=== PATIENT | male | born 1945 | race Caucasian/White ===

== ENCOUNTER 2017-06-07 21:20 | Inpatient (IN) | payer MEDICARE, OTHER ==
[~2017-06-07] VITALS: Ht 177.8 cm; Wt 86.2 kg
[2017-06-07] VITALS (7 sets, daily range): BP systolic 130–168; BP diastolic 80–118; Ht 177.8 cm; Wt 86.2 kg
--- NOTE | ~2017-06-07 | HP ---
PATIENT: SHAYY KAMARA MEDICAL RECORD: [id number] ACCOUNT: [id number] LOCATION:[facility] D.2309 : 47 ADMISSION DATE: 06/07/17 HISTORY AND PHYSICAL EXAMINATION HISTORY OF PRESENT ILLNESS: Mr. Kamara is a very nice 71-year-old white male that is admitted for a lower GI bleed. States he woke up yesterday morning and started having diarrhea, had 3 or 4 episodes which he initially saw no blood; around noon, it turned to bright red blood. He went to [facility] to get checked out and was transferred here because of no GI coverage. He arrived here overnight around 10:30 or 11 and was seen by GI fraud prevention analyst upon arrival. He is totally stable at this time, has been stable, but is admitted to the ICU for closer monitoring. He is in atrial fib for which he has no history of, but it is in a controlled rate and he is not symptomatic with it. His initial H&H is 15.1 and 43.1. He has normal platelet count 160,000 and white count is normal. BUN is 10. Potassium a little low at 3.3. PAST MEDICAL HISTORY: Relatively unremarkable. 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 He has a history of hypertension and hyperlipidemia and some GERD. PAST SURGICAL HISTORY: Include wisdom teeth, multiple inguinal and femoral hernia surgeries and some bilateral knee surgeries. ALLERGIES: PENICILLIN. HOME MEDICATIONS: Include Xarelto 20 mg daily, losartan 50 mg a day, pravastatin 80 mg a day, amlodipine 5 mg a day, and omeprazole 20 mg a day. FAMILY HISTORY: Noncontributory. SOCIAL HISTORY: He does not smoke or drink. He is retired from the [employer]. REVIEW OF SYSTEMS: He denies any recent fever, chills, sweats, unexplained weight loss, swollen glands or other constitutional symptoms. He denies any chest pain or shortness of breath. He does have abdominal pain and diarrhea as described above. No nausea or vomiting. No recent change in urination. PHYSICAL EXAMINATION: GENERAL: He is in no distress. Pleasant, cooperative and conversive. HEENT: Sclerae nonicteric. NECK: Soft and supple. HEART: Irregularly irregular with normal rate. LUNGS: Clear. ABDOMEN: Soft. No masses. There is a little bit of tenderness on the left side. EXTREMITIES: Lower extremities reveal no edema. NEUROLOGIC: Without any gross focal deficits. IMPRESSION: 1. Lower gastrointestinal bleed. CT shows wall changes in the descending colon, infectious versus embolic versus other. 2. Long-term anticoagulation secondary to recurrent deep venous thrombosis. 3. Hypertension. HISTORY AND PHYSICAL [id number] WHEAT,BJ 4. Hyperlipidemia. 5. New onset atrial fibrillation. 6. Gastroesophageal reflux disease. PLAN: Admit to the ICU for monitoring, serial H&Hs. Correct potassium. GI consult with Dr. Baltazar, who saw the patient upon arrival. Get an echo. Cardiology consult. Check mag and TSH. IV antibiotics. See orders for plan. TRANSINT:[id number] Voice Confirmation ID: [id number] DOCUMENT ID: [id number] GRANT SCRUGGS DO CC: [id number] DICTATION DATE: 06/08/17913 BELT TENDER: 06/08/1756 ADM IN [facility] [address] [id number]
--- NOTE | ~2017-06-07 | CN ---
PATIENT NAME:SHAYY ROGERS MEDICAL RECORD: [id number] : 49 LOCATION:[id number] ADMIT DATE: 06/07/17 ACCOUNT: [id number] CONSULTING PHYSICIAN: DAVID TINAJERO MD REFERRING PHYSICIAN: ESTEBAN OLMEDO M.D. DATE OF CONSULTATION: 06/07/2017 HISTORY OF PRESENT ILLNESS: A 71-year-old gentleman with a history of hypertension, unspecified arrhythmias. describes fairly classic SVT, possible atrial fibrillation and atrial flutter, transferred from [facility] with lower GI bleed and found to be in atrial fibrillation here. Rate is well controlled on no medication. He is entirely asymptomatic. We are asked to see him concerning his cardiovascular status. PAST MEDICAL HISTORY: Includes: 1. History of a DVT in the past, both with instigating factors postop. 2. History of hypertension. 3. Dyslipidemia. 4. Gastroesophageal reflux disease. ALLERGIES: PENICILLIN. MEDICATIONS: Xarelto 20 every day, losartan 50 every day, pravastatin 80 every day, amlodipine 5 Every day, and omeprazole 20 every day. SOCIAL HISTORY: , retired from the railroad. He is nonsmoker, nondrinker. He takes care of ADLs. REVIEW OF SYSTEMS: The patient reports easy bruising but reports no swollen glands. The patient reports no fever, no night sweats, no significant weight gain, no significant weight loss. No significant exercise tolerance. The patient reports no dry eyes, no irritation, no vision change. Patient reports no difficulty hearing and no ear pain. Patient reports no frequent nose bleeds or nose and sinus problems. Patient reports on arm pain on exertion. No shortness of breath while lying down. No history of heart murmur. Patient reports no cough, no wheezing or coughing up blood. Patient reports no abdominal pain, no vomiting. Normal appetite. No diarrhea and not vomiting blood. No nausea and no constipation. Patient reports no incontinence. No difficulty urinating. No hematuria. No increased frequency. Patient reports no muscle aches. No weakness, no arthralgias, no back pain. No swelling of the extremities. Patient reports no abnormal mole, no jaundice, no rashes. Reports no loss of consciousness. No weakness and no numbness. No seizures, dizziness, or headaches. The patient reports no depression, no sleep disturbance, feeling safe in a relationship and no alcohol abuse. Patient reports on fatigue. Reports no runny nose or sinus pressure. No itching, no hives, and no frequent sneezing. PHYSICAL EXAMINATION: GENERAL: Pleasant gentleman in no acute distress. VITAL SIGNS: Blood pressure 130/87, pulse 82 and irregular. HEENT: Normocephalic, atraumatic. NECK: No JVD or bruit. HEART: Irregular, rate controlled. A II/ systolic ejection murmur. LUNGS: Good air excursion. ABDOMEN: Soft, nontender. CONSULT REPORT [id number] SHAYY ROGERS EXTREMITIES: Pulses are well preserved, 2+. No edema. NEUROLOGIC: Grossly intact. IMPRESSION: Atrial fibrillation. At this point in time, has a very low FIONA scores, so I agree with holding Xarelto. Agree with echocardiograph study. Further recommendations based on clinical course. TRANSINT:[id number] Voice Confirmation ID: [id number] DOCUMENT ID: [id number] DAVID TINAJERO MD CC: [id number] DICTATION DATE: 06/08/17 1240 TENNIS CAMP INSTRUCTOR: 06/08/171911 ADM IN [facility] [address] [id number]
--- NOTE | ~2017-06-07 | EC ---
PATIENT:SHAYY ROGERS DATE OF SERVICE: 06/07/17 SEX: M MEDICAL RECORD: [id number] DATE OF : [birth year] LOCATION:D.M2 D.210 AGE OF PATIENT: 71 ADMISSION DATE: 06/07/17 REFERRING PHYSICIAN: INTERPRETING PHYSICIAN: CHERELLE ARIAS MD ECHOCARDIOGRAM REPORT ECHO CHARGES 4 ECHO COMPLETE CLINICAL DIAGNOSIS: NEW ONSET A-FIB ECHOCARDIOGRAPHIC MEASUREMENTS (adult normal given) AC root (d.<3.7cm) 3.4 cm LV Septum d (<1.2 cm> 1.2 cm Valve Excursion 2.1 cm LV Septum (systole) 2.0 cm Left Atria (s.<4.0cm> 3.9 cm LVPW d(<1.2cm) 1.2 cm RV (d.<2.3cm) 2.8 cm LVPW (sytole) 1.7 cm LV diastole(<5.6CM) 5.7 cm MV E-F(>70mm/sec) cm LV systole 3.4 cm LVOT Diameter 1.9 cm MV exc.(>10mm) cm Est.ejection fraction (50-75%) % Pericardial Effusion N DOPPLER: LVIT cm/sec A cm/sec E 94.0 cm/sec LA cm/sec RVSP 32.0 mmHg LVOT 102 cm/sec AOP1/2T m/s Asc. Ao 113 cm/sec RVOT 59.0 cm/sec RA cm/sec PA 62.0 cm/sec AV Gradient Peak 5.1 mmHg AV Mean 2.6 mmHg AV Area 3.1 cm MV Gradient Peak 5.0 mmHg MV Mean 1.7 mmHg MV Area cm COMMENTS: Medical Administrator: Quin OCASIOOE Applications Systems Engineer: 3 Dr. Manuel TAPE# PACS DATE OF SERVICE: 06/09/2017 PROCEDURE: Echocardiogram FINDINGS: 1. Left ventricular chamber size is within normal limits. Left ventricular systolic function is normal. Overall ejection fraction estimated at 55%. 2. Left atrium is within normal limits at 3.9 cm. Right atrium and right ventricle chamber sizes are mildly dilated. 3. Valvular structures have normal structure and motion. ECHOCARDIOGRAM REPORT [id number] SHAYY ROGERS 4. Doppler interrogation reveals moderate mitral regurgitation, moderate tricuspid regurgitation, no other valvular insufficiency or stenosis. Pulmonary systolic pressure is estimated at 32 mmHg. 5. No evidence of pericardial effusion or left ventricular thrombus. TRANSINT:[id number] Voice Confirmation ID: [id number] DOCUMENT ID: [id number] CHERELLE ARIAS MD CC: [id number] DICTATION DATE: 06/10/17 105 VENEER LAYER: 06/10/17 1157 DIS IN 06/10/17 [facility] [address] [id number]
--- NOTE | 2017-06-07 22:00 | NUR ---
ARRIVED BY STRETCHER BY EMS. AMBULATED TO ICU BED. PLACED INTO A HOSPITAL GOWN. RT AC 20G PIV INTACT-SALINE LOCKED. PLACED ON CONTINUOUS CARDIAC MONITORING. AFIB/FLUTTER IN THE LOWER 100'S NOTED ON THE MONITOR. B/P ELEVATED. WILL MONITOR B/P EVERY 15 MINUTES. ABDOMEN SLIGHTLY DISTENDED, TENDER. DR. ALEMAN CAME IN TO BEDSIDE FOR EXAM AND CONSULTATION. WARM BLANKET GIVEN. NO SKIN ISSUES NOTED THAT ARE VISABLE. ON ROOM AIR. WILL MONITOR.
[2017-06-07] MEDS ORDERED: PRAVACHOL80 MG PO (22:41)
[2017-06-07] MEDS ORDERED: NORVASC5 MG PO (22:42)
[2017-06-07] MEDS ORDERED: OMEPRAZOLE20 M1 PO (22:42)
[2017-06-07] MEDS ORDERED: COZAAR50 MG PO (22:43)
[2017-06-07] MEDS ORDERED: XARELTO20 MG PO (22:43)
[2017-06-07 23:15] LABS: HEMATOCRIT 43.1 % (42.0-54.0); HEMOGLOBIN 15.1 g/dL (13.5-17.5)
--- NOTE | 2017-06-07 23:20 | NUR ---
IV FLUIDS-NS HUNG AT 100ML/HR FOR REHYDRATION. EXPLAINED PLAN OF CARE FURTHERMORE AFTER DR. ALEMAN LEFT. INFORMED WILL CONSULT A COOPER APPRENTICE ONCE LABS RESULTED. WILL MONITOR.
[2017-06-07 23:34] LABS: CKMB 0.3 U/L (0.0-3.6); CREATINE KINASE 51 UL (21-232)
[2017-06-07 23:42] LABS: TROPONIN-I < 0.017 ng/mL (0.000-0.060)
--- NOTE | 2017-06-07 23:50 | NUR ---
DR.ST. CASEY PAGED VIA ANSWERING SERVICE TO INFORM OF CONSULT NOW LABS ARE BACK.
--- NOTE | 2017-06-07 23:53 | NUR ---
DR. CASEY RETURNED PAGE. INFORMED OF CONSULT. HEART RATE CONTROLLED AFIB CURRENTLY. DOES NOT WANT TO DO ANYTHING NEW AT THIS TIME.
[2017-06-08] VITALS (19 sets, daily range): BP systolic 92–144; BP diastolic 50–109
--- NOTE | 2017-06-08 00:05 | NUR ---
LAYING ON RT SIDE. AFIB IN THE 70'S NOTED ON THE MONITOR. B/P AT NORMAL RANGE CURRENTLY. WILL MONITOR.
--- NOTE | 2017-06-08 02:00 | NUR ---
EYES CLOSED. NO ACUTE DISTRESS NOTED. WILL MONITOR.
--- NOTE | 2017-06-08 04:05 | NUR ---
REASSESSMENT COMPLETED. SEE ASSESSMENT FLOWSHEET. DENIES ANY PAIN AT THIS TIME. DENIES NEED TO HAVE A BM. RT AC PIV INTACT WNL. REPORTS INABILITY TO GET COMFORTABLE . SOME SHEETS REMOVED. WILL MONITOR.
--- NOTE | 2017-06-08 05:50 | NUR ---
PHELBO AT BEDSIDE TO DRAW AM LABS. I & O'S ASSESSED. EMPTIED URINAL. DENIES ANY NEEDS AT PRESENT.
[2017-06-08 06:14] LABS: BASOPHILS 0 % (0-2); HEMATOCRIT 41.5 % (42.0-54.0); HEMOGLOBIN 14.5 g/dL (13.5-17.5); LYMPHOCYTES 22.5 % (15-50); MCHC 34.9 g/dL (31.0-37.0); MCV 94.3 fL (80.0-100.0); MONOCYTES 6.2 % (2-11); NEUTROPHILS 70.3 % (40-80); PLATELET COUNT 160 10x3/uL (130-400); RDW 12.6 % (11.5-14.5); WBC 6.1 10x3/uL (4.8-10.8)
[2017-06-08 06:22] LABS: INR 1.14 (0.85-1.17); PROTIME 14.5 SECONDS (11.6-15.0)
[2017-06-08 06:31] LABS: ALBUMIN 3.2 g/dL (3.4-5.0); ALKALINE PHOSPHATASE 51 U/L (46-116); ALT (SGPT) 27 U/L (10-68); BILIRUBIN - TOTAL 1.32 mg/dL (0.2-1.3); CALC OSMOLALITY 277 mosm/kg (275-300); CHLORIDE - SERUM 107 mmol/L (98-107); CREATININE - SERUM 0.9 mg/dL (0.6-1.3); GLUCOSE 99 mg/dL (74-106); POTASSIUM - SERUM 3.3 mmol/L (3.5-5.1); PROTEIN - SERUM 6.6 g/dL (6.4-8.2); SODIUM 140 mmol/L (136-145); UREA NITROGEN 10 mg/dL (7-18); eGFR NON AFRICAN AMERICAN 89 mL/min (90-120)
[2017-06-08 09:53] LABS: MAGNESIUM - SERUM 2.3 mg/dL (1.8-2.4); THYROID STIMULATING HORMONE 2.25 uIU/mL (0.36-3.74)
--- NOTE | 2017-06-08 11:41 | NUR ---
0700 RECEIVED PT AWAKE PLEASANT IN BED, NO COMPLAINTS NO DISTRESS NOTED, ALERT ORIENTED ABLE TO VOICE ALL WANTS AND NEEDS. NO BM NOTED, USES URINAL WIHOUT DIFFICULTY. VSS, SEE INITAL ASSESSMENT. 0900 CONTINUES TO REMAIN PLEASANT AND ALERT NO WANTS OR NEEDS, VSS, NO DISTRESS NOTED, ASKED SEVERAL TIMES BY THIS NURSE AND STUDENT NURSE IF HE WANTED A BATH STATES NO THAT HE TOOK A SHOWER BEFORE HE WENT TO THE ER YESTERDAY, GAVE PT SOME WARM WIPES TO WASH HIS HANDS AND FACE WITH. 1200 LUNCH GIVEN TO PT, NO DISTRESS NOTED, CONTUNES TO HAVE NO BM, VSS DRINKING WATER WITHOUT DIFFICULTY. NO COMPLAINTS
[2017-06-08 13:39] LABS: BILIRUBIN - INDIRECT 1.12 mg/dL (0.00-1.00)
--- NOTE | 2017-06-08 15:11 | NUR ---
1200 RECEIVED ORDERS TO TRANSFER PT TO FLOOR PER GI MD IF OK WITH PCP, SPOKE WITH PCP AND HE STATED IT WAS OK, ORDERS IN COMPUTER AND INSPECTOR INTEGRATED CIRCUITS AWARE. PT AWARE AND NO DISTRESS NOTED, NO COMPLAINTS. H&h Q 6 CANCELLED AND ORDERED FOR Q DAY.
--- NOTE | 2017-06-08 19:00 | NUR ---
REPORT RECIEVED, SHIFT ASSESSMENT COMPLETE, PT IS ALERT AND ORIENTED, ON RA WITH 97% O2 SAT. LUNGS CLEAR IN ALL LOBES, CM-CONTROLLED AFIB, PATENT RIGHT A/C PIV WITH NS INFUSING @ 100 ML/HR VIA PUMP, ABDOMEN IS SOFT AND ROUND WITH ACTIVE BS, URINAL AT BEDSIDE, ALL PPP, VSS, CALL LIGHT IN REACH
--- NOTE | 2017-06-08 21:00 | NUR ---
NO VISITORS AT THIS TIME, WILL CON'T TO MONITOR
--- NOTE | 2017-06-08 23:10 | NUR ---
PT AWAKE AT THIS TIME, DENIES ANY NEEDS OR WANTS, VSS, CALL LIGHT IN REACH
--- NOTE | 2017-06-09 01:00 | NUR ---
NO NEEDS NOTED AT THIS TIME, WILL CON'T TO MONITOR
[2017-06-09 03:00] VITALS: BP 119/84
--- NOTE | 2017-06-09 03:00 | NUR ---
PT RESTING COMFORTABLY AT THIS TIME, VSS, CALL LIGHT IN REACH
[2017-06-09 03:28] LABS: BASOPHILS 0.2 % (0-2); EOSINOPHILS 1.6 % (0-7); HEMATOCRIT 39.3 % (42.0-54.0); HEMOGLOBIN 13.5 g/dL (13.5-17.5); IMMATURE GRANULOCYTES 0.2 % (0-5); LYMPHOCYTES 24.6 % (15-50); MCH 32.5 pg (26.0-34.0); MCHC 34.4 g/dL (31.0-37.0); MCV 94.5 fL (80.0-100.0); MEAN PLATELET VOLUME 11.5 fL (7.4-10.4); MONOCYTES 6.7 % (2-11); NEUTROPHILS 66.7 % (40-80); PLATELET COUNT 148 10x3/uL (130-400); RBC 4.16 10x6/uL (4.20-6.10); RDW 12.5 % (11.5-14.5)
[2017-06-09 03:42] LABS: ALBUMIN 3.2 g/dL (3.4-5.0); ALKALINE PHOSPHATASE 45 U/L (46-116); ALT (SGPT) 25 U/L (10-68); CALC OSMOLALITY 282 mosm/kg (275-300); CALCIUM 8.1 mg/dL (8.5-10.1); CARBON DIOXIDE 26.3 mmol/L (21.0-32.0); CHLORIDE - SERUM 109 mmol/L (98-107); CREATININE - SERUM 0.8 mg/dL (0.6-1.3); GLUCOSE 105 mg/dL (74-106); POTASSIUM - SERUM 3.5 mmol/L (3.5-5.1); PROTEIN - SERUM 6.1 g/dL (6.4-8.2); SODIUM 143 mmol/L (136-145); eGFR NON AFRICAN AMERICAN > 90 mL/min (90-120)
[2017-06-09 03:48] LABS: UREA NITROGEN 7 mg/dL (7-18)
--- NOTE | 2017-06-09 05:15 | NUR ---
NO NEEDS NOTED AT THIS TIME, WILL CON'T TO MONITOR
[2017-06-09 07:00] VITALS: BP 119/84
--- NOTE | 2017-06-09 07:15 | NUR ---
REPORT RECIEVED FROM GENERAL SUPERVISOR NURSE. ASSESSMENT COMPLETE PER FLOWSHEET. REFER FOR DETAILS. WILL CONT PLAN OF CARE.
[2017-06-09 12:00] VITALS: BP 134/78
--- NOTE | 2017-06-09 13:18 | NUR ---
1300 DR CORTES IN TO SEE PT UPDATE GIVEN AND ORDERS RECIEVED.. 1315 REPORT CALLED TO FLOOR.. PT TO BE TRANSFERED VUIA WHEEL CHAIR.. PIV DC AND SALINE LOCKED.. REGULAR DIET FOR DINNER..
--- NOTE | 2017-06-09 13:35 | NUR ---
PT RECIEVED TO ROOM FROM ICU. RR EVEN AND UNLABORED, VSS. PT IS ALERT AND ORIENTED X4. REQUESTED ICE WATER, PROVIDED. EXPALINED HOW TO CALL FOR ASSISTANCE. BED IN LOWEST POSTION, CALL BILL IN REACH, WILL CTM.
[2017-06-09 16:00] VITALS: BP 142/82
--- NOTE | 2017-06-09 18:20 | NUR ---
PT RESTING QUIELTY, PREPARING TO TAKE SHOWER. TURNED OFF IV FLUIDS FOR SHOWER. RR EVEN AND UNLABORED. WILL GIVE REPORT ON PT CONDITION FOR THE DAY.
[2017-06-09 20:51] VITALS: BP 125/85
--- NOTE | 2017-06-09 21:50 | NUR ---
ADMIN SCHED MED WITH SIPS OF WATER, SWALLOWING WITHOUT DIFFICULTY. DENIES ANY NEEDS OR DISCOMFORTS. HAS CL IN REACH.
--- NOTE | 2017-06-10 00:30 | NUR ---
RESTING ON LEFT SIDE WITH EYES CLOSED. RR EVEN U/L. NO S/S OF DISCOMFORT. CL IN REACH.
[2017-06-10 01:15] VITALS: BP 125/85
[2017-06-10 03:45] VITALS: BP 137/83
--- NOTE | 2017-06-10 04:46 | NUR ---
AWAKE, REQUESTED CUP OF COFFEE. DENIES ANY OTHER NEEDS OR DISCOMFORTS.
[2017-06-10 05:13] LABS: HEMATOCRIT 42.7 % (42.0-54.0); HEMOGLOBIN 14.8 g/dL (13.5-17.5)
[2017-06-10 08:00] VITALS: BP 126/93
[2017-06-10] MEDS ORDERED: Levaquin PO (08:29)
[2017-06-10] MEDS ORDERED: FLORAJEN3 CAPS460 MG PO (08:30)
[2017-06-10] MEDS ORDERED: FLAGYL500 MG PO (08:30)
--- NOTE | 2017-06-10 09:23 | NUR ---
Patient Name: SHAYY ROGERS Admission Status: Elective Accout number: [id number] Admission Date: 06-07-2017 : 1945 Admission Diagnosis: Attending: ESTEBAN OLMEDO Current LOS: 3 Anticipated DC Date: 06-10-2017 Planned Disposition: Home Primary Insurance: MEDICARE A & B Discharge Planning Comments: * Is the patient Alert and Oriented? Yes 0 * How many steps to enter\exit or inside your home? 1 0 * PCP DR. Cayden JAMES 0 * Pharmacy [facility] OR [facility] 0 * Preadmission Environment Home with Family 0 * ADLs Independent 0 * Equipment Crutch 0 * Other Equipment NO MEDICAL EQUIPMENT PROVIDER PREFERNCE 0 * List name and contact numbers for known caregivers / representatives who currently or will assist patient after discharge: [facility] ROGERS, 0 * Community resources currently utilized None 0 * Please name any agencies selected above. NONE 0 * Additional services required to return to the preadmission environment? No 0 * Can the patient safely return to the preadmission environment? Yes 0 * Has this patient been hospitalized within the prior 30 days at any hospital? No 0 CM MET WITH PT AND SPOUSE IN ROOM TO DISCUSS DISCHARGE PLANNING AND NEEDS. PT REPORTS LIVING AT HOME INDEPENDENTLY WITH SPOUSE. PT HAS CRUTCHES WITH NO MEDICAL EQUIPMENT PROVIDER PREFERENCE. PT HAS NO OUTSIDE SERVICES ASSISTING IN THE HOME. CM DISCUSSED AVAILABILITY OF HOME HEALTH, REHAB SERVICES AND MEDICAL EQUIPMENT. PT DENIES DISCHARGE NEEDS, REPORTS HIS IS HERE TO PICK HIM UP FOR DISCHARGE HOME. IMPORTANT MESSAGE FROM MEDICARE PROVIDED AND EXPLAINED. PROJECT COORDINATOR RN NURSE NOTIFIED. Clean Rice Grader And Reel Tender: Viral Hayes
--- NOTE | 2017-06-10 10:53 | NUR ---
ALERT AND ORIENTED X4. DC RT AC IV TIP INTACT. DISCHARGE INSTRUCTIONS GIVEN VERBALLY AND WRITTEN. DISCHARGE PAPERS SIGNED ON CHART. ESCORT TO RIDE VIA WHEELCHAIR. REMAINS FREE FROM INJURY.
--- NOTE | 2017-06-10 11:05 | NUR ---
RECEIVED CALL FROM PT, [facility] TOLD [facility] THEY DID NOT HAVE HIS PRESCRIPTION FOR LEVAQUIN. I ADVISED I CALLED THIS SCRIPT TO [facility] AND SPOKE WITH NUBIA CAMACHO/PHARMACIST. PT ASKED IF I COULD CALL THIS INTO [facility] AND HE WOULD PICK IT UP THERE INSTEAD. CALLED TO [facility]. SPOKE WITH MIKAELA/PHARMACIST.
== END 2017-06-10 10:58 | disposition home or self-care (01) | DRG 392 ==
LOC: D.ICU 21:20 → D.M2 06-09 13:37
PROVIDERS: Family Medicine; Internal Medicine Gastroenterology; ADMIT Family Medicine
DX: A09 Infectious gastroenteritis and colitis, unspecified (principal); I48.91 Unspecified atrial fibrillation; Z79.01 Long term (current) use of anticoagulants; E78.5 Hyperlipidemia, unspecified; I10 Essential (primary) hypertension; Z86.718 Personal history of other venous thrombosis and embolism; K21.9 Gastro-esophageal reflux disease without esophagitis; K76.0 Fatty (change of) liver, not elsewhere classified